=== PATIENT | male | born 1945 | race Caucasian/White ===

== ENCOUNTER 2024-01-07 19:23 | Inpatient (IN) | payer MEDICARE ==
[~2024-01-07] VITALS: Ht 180.3 cm; Wt 89.8 kg
[2024-01-07 19:25] VITALS: BP 114/68; PULSE 86; RESP 22; TEMP 98; O2SAT 97
[2024-01-07] MEDS ORDERED: cefTRIAXone 1,000 MG VIAL ONE (19:33)
[2024-01-07 19:45] VITALS: BP 139/69; PULSE 84; PULSE 94; RESP 25; O2SAT 94; O2SAT 97; O2SAT 99
[2024-01-07] MEDS: cefTRIAXone 1,000 MG in DEXT 5% MINI-BAG PLUS 50 ML IV ONE (19:45)
[2024-01-07] MEDS: FUROSEMIDE 40 MG/4 ML VIAL IVP ONE (19:45)
[2024-01-07 19:47] LABS: BASOPHILS # (AUTO) 0.1 K/uL (0.00-0.22); EOSINOPHILS % (AUTO) 0.3 % (0.0-4.0); HEMOGLOBIN 13.9 g/dL (12.0-18.0); LYMPHOCYTES # (AUTO) 0.5 K/uL (2.0-11.5); LYMPHOCYTES % (AUTO) 4.1 % (20.5-51.1); MEAN CORPUSCULAR HEMOGLOBIN 26 pg (27-31); MEAN CORPUSCULAR HGB CONC 32 g/dL (33-37); MEAN CORPUSCULAR VOLUME 82.6 fL (80-94); MONOCYTES # (AUTO) 1.6 K/uL (0.8-1.0); MONOCYTES % (AUTO) 11.8 % (1.7-9.3); NEUTROPHILS # (AUTO) 10.9 K/uL (1.8-7.7); NEUTROPHILS % (AUTO) 82.8 % (42.2-75.2); PLATELET COUNT (AUTO) 353 K/uL (140-450); RED BLOOD CELL COUNT(AUTO) 5.33 MIL/uL (4.20-6.10); RED CELL DISTRIBUTION WIDTH 17.4 % (11.6-13.7); WHITE BLOOD COUNT (AUTO) 13.1 K/uL (4.8-10.8)
[2024-01-07 19:48] LABS: ANION GAP 8.8 (8-16); CALCIUM 8.8 mg/dL (8.5-10.1); CARBON DIOXIDE 34.2 mmol/L (21-32); CHLORIDE 89 mmol/L (98-107); CREATININE 0.6 mg/dL (0.6-1.3); GLUCOSE 178 mg/dL (74-106); SODIUM SERUM 128 mmol/L (136-145); UREA NITROGEN, BLOOD 20 mg/dL (7-18)
[2024-01-07 20:00] LABS: ALANINE AMINOTRANSFERASE 6 U/L (12-78); ALBUMIN 2.6 g/dL (3.4-5.0); ALKALINE PHOSPHATASE 126 U/L (50-136); ASPARTATE AMINOTRANSFERASE 26 U/L (15-37); BILIRUBIN,DIRECT 0.3 mg/dL (0.0-0.3); TOTAL BILIRUBIN 0.6 mg/dL (0.0-1.0); TOTAL PROTEIN, SERUM 7.5 g/dL (6.4-8.2)
[2024-01-07 20:06] LABS: LACTIC ACID 1.3 mmol/L (0.4-2.0)
[2024-01-07 20:26] LABS: APPEARANCE,URINE CLEAR (CLEAR); BILIRUBIN,URINE NEGATIVE (NEGATIVE); BLOOD, URINE TRACE-I (NEGATIVE); COLOR,URINE YELLOW (YELLOW); LEUKOCYTE ESTERASE ,URINE NEGATIVE (NEGATIVE); NITRITE, URINE NEGATIVE (NEGATIVE); PROTEIN,URINE 1+ (NEGATIVE); UGLUCOSE 3+ (NEGATIVE); UROBILINOGEN,URINE 0.2 EU/dL (0.2 - 1)
[2024-01-07 20:35] LABS: FLU A ANTIGEN negative (NEGATIVE); FLU B ANTIGEN negative (NEGATIVE)
[2024-01-07] MEDS ORDERED: NOVN SUBQ (21:40)
[2024-01-07] MEDS ORDERED: ACET-2619 PO (21:41)
[2024-01-07] MEDS ORDERED: FOS70 PO (21:41)
[2024-01-07] MEDS ORDERED: EMPA25TA PO (21:41)
[2024-01-07] MEDS ORDERED: FURO-570 PO (21:41)
[2024-01-07] MEDS ORDERED: CARB-540 PO (21:41)
[2024-01-07] MEDS ORDERED: SENN-73 PO (21:41)
[2024-01-07] MEDS ORDERED: LEVO0.173 PO (21:41)
[2024-01-07] MEDS ORDERED: POTA20TA PO (21:41)
[2024-01-07] MEDS ORDERED: ZAR2.5 PO (21:41)
[2024-01-07] MEDS ORDERED: MELA1TAB32 PO (21:41)
[2024-01-07] MEDS ORDERED: TUBE5SOL28 ID (21:41)
[2024-01-07] MEDS ORDERED: INSU100S5 IJ (21:41)
[2024-01-07] MEDS ORDERED: LISI2.5T12 PO (21:41)
[2024-01-07] MEDS ORDERED: ATOR20TA PO (21:41)
[2024-01-07] MEDS ORDERED: ASPI-1205 PO (21:41)
[2024-01-07] MEDS ORDERED: METO25TA PO (21:41)
[2024-01-07] MEDS ORDERED: ONDANSETRON 4 MG/2 ML VIAL IVP PRN ×2 (21:45→23:05)
[2024-01-07] MEDS ORDERED: BENZONATATE 100 MG CAPLF PO PRN (21:45)
[2024-01-07] MEDS ORDERED: AZITHROMYCIN 500 MG in DEXTROSE 5% 250 ML IV SCH (21:45)
[2024-01-07] MEDS ORDERED: HYDROcodone/APAP 5/325 MG 1 TAB TAB PO PRN (21:45)
[2024-01-07] MEDS ORDERED: LORazepam 2 MG/ML VIAL IVP PRN (21:45)
[2024-01-07] MEDS ORDERED: MORPHINE SULFATE 2 MG/ML SYR IVP PRN (21:45)
[2024-01-07] MEDS ORDERED: hydrALAZINE 20 MG/ML VIAL IVP PRN (21:50)
[2024-01-07 23:10] VITALS: BP 143/72; PULSE 101; RESP 32; TEMP 97.1; O2SAT 90
[2024-01-07 23:20] VITALS: PULSE 100; O2SAT 92
[2024-01-07] MEDS: methylPREDNISolone SS 40 MG/ML VIAL IVP ONE (23:49)
[2024-01-08] VITALS (13 sets, daily range): BP systolic 117–128; BP diastolic 66–75; PULSE 68–105; RESP 18–32; TEMP 97.2–99.2; O2SAT 89–98
[2024-01-08] MEDS: ALBUTEROL SULFATE/IPRATROPIU 3 ML SOL IH SCH (04:09)
[2024-01-08] MEDS: methylPREDNISolone SS 40 MG/ML VIAL IVP SCH (05:20)
[2024-01-08] MEDS ORDERED: LEVOTHYROXINE 0.112 MG TAB PO SCH (06:30)
[2024-01-08] MEDS: INSULIN LISPRO SLIDING SCALE 100 UNITS/ML VIAL SUBQ PRN (06:32)
[2024-01-08] MEDS: BLOOD GLUCOSE MONITORING 1 DEV DEV FS SCH (06:32)
[2024-01-08] MEDS: FUROSEMIDE 20 MG/2 ML VIAL IVP SCH (08:59)
[2024-01-08] MEDS: metOLazone 2.5 MG TAB PO SCH (09:00)
[2024-01-08] MEDS: SENNA 8.6 MG TAB PO SCH (09:00)
[2024-01-08] MEDS: METOPROLOL 25 MG TAB PO SCH (09:00)
[2024-01-08] MEDS: CARBIDOPA/LEVODOPA 25/100 MG 1 TAB PO SCH (09:00)
[2024-01-08] MEDS: lisinopriL 5 MG TAB PO SCH (09:00)
[2024-01-08] MEDS: ATORVASTATIN 20 MG TAB PO SCH (09:00)
[2024-01-08] MEDS: ENOXAPARIN 40 MG/0.4 ML SYR SUBQ SCH (09:01)
[2024-01-08] MEDS: DEXT 5% /NACL 0.9% 1,000 ML IV SCH (10:11)
[2024-01-08] MEDS: FUROSEMIDE 40 MG/4 ML VIAL IVP SCH (18:14)
[2024-01-09] VITALS (18 sets, daily range): BP systolic 114–133; BP diastolic 58–84; PULSE 65–95; RESP 16–31; TEMP 96.9–97.9; O2SAT 91–99
[2024-01-09 06:30] LABS: BASOPHILS % (AUTO) 0.1 % (0.0-2.0); HEMATOCRIT 40.8 % (36-52); HEMOGLOBIN 13.1 g/dL (12.0-18.0); LYMPHOCYTES # (AUTO) 0.5 K/uL (2.0-11.5); LYMPHOCYTES % (AUTO) 3.3 % (20.5-51.1); MEAN CORPUSCULAR HEMOGLOBIN 26 pg (27-31); MEAN CORPUSCULAR HGB CONC 32 g/dL (33-37); MEAN CORPUSCULAR VOLUME 82.2 fL (80-94); NEUTROPHILS # (AUTO) 12.9 K/uL (1.8-7.7); NEUTROPHILS % (AUTO) 89.6 % (42.2-75.2); PLATELET COUNT (AUTO) 334 K/uL (140-450); RED BLOOD CELL COUNT(AUTO) 4.96 MIL/uL (4.20-6.10); RED CELL DISTRIBUTION WIDTH 17.7 % (11.6-13.7); WHITE BLOOD COUNT (AUTO) 14.4 K/uL (4.8-10.8)
[2024-01-09] MEDS: LEVOTHYROXINE 0.075 MG, LEVOTHYROXINE 0.1 MG PO SCH (06:37)
[2024-01-09] MEDS: LEVOTHYROXINE 0.1 MG TAB ONE (06:39)
[2024-01-09] MEDS: LEVOTHYROXINE 0.075 MG TAB ONE (06:39)
[2024-01-09 06:40] LABS: ANION GAP 11.2 (8-16); CALCIUM 8.3 mg/dL (8.5-10.1); CARBON DIOXIDE 32.1 mmol/L (21-32); CHLORIDE 93 mmol/L (98-107); CREATININE 0.9 mg/dL (0.6-1.3); GLUCOSE 215 mg/dL (74-106); POTASSIUM 3.3 mmol/L (3.5-5.1); SODIUM SERUM 133 mmol/L (136-145); UREA NITROGEN, BLOOD 31 mg/dL (7-18)
[2024-01-09 06:55] LABS: FREE T4 (FREE THYROXINE) 1.09 ng/dL (0.76-1.46); THYROID STIMULATING HORMONE 3.34 uIU/mL (0.34-3.74)
[2024-01-09] MEDS: POTASSIUM CHLORIDE 10 MEQ TABER PO SCH (15:01)
[2024-01-10] VITALS (14 sets, daily range): BP systolic 112–141; BP diastolic 52–71; PULSE 52–74; RESP 16–23; TEMP 96.5–98.1; O2SAT 90–98
[2024-01-10] MEDS: LEVOTHYROXINE 0.075 MG TAB ONE (06:20)
[2024-01-10] MEDS: LEVOTHYROXINE 0.1 MG TAB ONE (06:21)
[2024-01-10 07:05] LABS: BASOPHILS # (AUTO) 0.1 K/uL (0.00-0.22); BASOPHILS % (AUTO) 0.5 % (0.0-2.0); EOSINOPHILS # (AUTO) 0.1 K/uL (0-0.4); EOSINOPHILS % (AUTO) 0.5 % (0.0-4.0); HEMATOCRIT 44.1 % (36-52); HEMOGLOBIN 14.1 g/dL (12.0-18.0); LYMPHOCYTES # (AUTO) 0.6 K/uL (2.0-11.5); LYMPHOCYTES % (AUTO) 4.3 % (20.5-51.1); MEAN CORPUSCULAR HEMOGLOBIN 27 pg (27-31); MEAN CORPUSCULAR HGB CONC 32 g/dL (33-37); MONOCYTES # (AUTO) 1.3 K/uL (0.8-1.0); MONOCYTES % (AUTO) 9.2 % (1.7-9.3); NEUTROPHILS # (AUTO) 12.3 K/uL (1.8-7.7); NEUTROPHILS % (AUTO) 85.5 % (42.2-75.2); PLATELET COUNT (AUTO) 316 K/uL (140-450); RED BLOOD CELL COUNT(AUTO) 5.31 MIL/uL (4.20-6.10); RED CELL DISTRIBUTION WIDTH 17.9 % (11.6-13.7); WHITE BLOOD COUNT (AUTO) 14.3 K/uL (4.8-10.8)
[2024-01-10 07:46] LABS: ANION GAP 10.8 (8-16); CALCIUM 8.4 mg/dL (8.5-10.1); CARBON DIOXIDE 35.6 mmol/L (21-32); CHLORIDE 93 mmol/L (98-107); GLUCOSE 241 mg/dL (74-106); SODIUM SERUM 137 mmol/L (136-145); UREA NITROGEN, BLOOD 36 mg/dL (7-18)
[2024-01-10 07:50] LABS: POTASSIUM 2.4 mmol/L (3.5-5.1)
[2024-01-10] MEDS: POTASSIUM CHLORIDE 40 MEQ, LIDOCAINE 1% 25 MG in NACL 0.9% 250 ML IV SCH (12:04)
[2024-01-10] MEDS: POTASSIUM CHLORIDE 10 MEQ TABER PO SCH (17:07)
[2024-01-10] MEDS: SILDENAFIL 20 MG TAB PO SCH (17:08)
[2024-01-10] MEDS: APIXABAN 2.5 MG TAB PO SCH (20:16)
[2024-01-11] VITALS (15 sets, daily range): BP systolic 117–143; BP diastolic 47–69; PULSE 62–83; RESP 18–20; TEMP 96.7–98.4; O2SAT 91–98
[2024-01-11] MEDS: LEVOTHYROXINE 0.075 MG TAB ONE (06:21)
[2024-01-11] MEDS: LEVOTHYROXINE 0.1 MG TAB ONE (06:21)
[2024-01-11 06:46] LABS: CALCIUM 7.7 mg/dL (8.5-10.1); CARBON DIOXIDE 36.5 mmol/L (21-32); CHLORIDE 95 mmol/L (98-107); GLUCOSE 337 mg/dL (74-106); HEMATOCRIT 39.1 % (36-52); HEMOGLOBIN 12.7 g/dL (12.0-18.0); LYMPHOCYTES # (AUTO) 0.3 K/uL (2.0-11.5); LYMPHOCYTES % (AUTO) 2.7 % (20.5-51.1); MEAN CORPUSCULAR HEMOGLOBIN 27 pg (27-31); MEAN CORPUSCULAR HGB CONC 33 g/dL (33-37); MEAN CORPUSCULAR VOLUME 82.6 fL (80-94); MONOCYTES # (AUTO) 0.9 K/uL (0.8-1.0); MONOCYTES % (AUTO) 8.5 % (1.7-9.3); NEUTROPHILS # (AUTO) 9.6 K/uL (1.8-7.7); NEUTROPHILS % (AUTO) 88.8 % (42.2-75.2); PLATELET COUNT (AUTO) 291 K/uL (140-450); RED BLOOD CELL COUNT(AUTO) 4.73 MIL/uL (4.20-6.10); RED CELL DISTRIBUTION WIDTH 17.7 % (11.6-13.7); SODIUM SERUM 136 mmol/L (136-145); UREA NITROGEN, BLOOD 40 mg/dL (7-18); WHITE BLOOD COUNT (AUTO) 10.8 K/uL (4.8-10.8)
[2024-01-11 06:49] LABS: POTASSIUM 2.5 mmol/L (3.5-5.1)
[2024-01-11] MEDS ORDERED: POTASSIUM CHLORIDE 40 MEQ, LIDOCAINE 1% 25 MG in NACL 0.9% 250 ML IV ONE (07:35)
[2024-01-11] MEDS: POTASSIUM CHLORIDE 40 MEQ, LIDOCAINE 1% 25 MG in NACL 0.9% 250 ML IV SCH (09:23)
[2024-01-11] MEDS: POTASSIUM CHLORIDE 10 MEQ TABER PO SCH ×2 (13:28→16:50)
[2024-01-11] MEDS: FUROSEMIDE 40 MG/4 ML VIAL IVP SCH (13:38)
[2024-01-11] MEDS: INSULIN LANTUS 100 UNITS/ML 10 ML VIAL SUBQ SCH (20:32)
[2024-01-12] VITALS (14 sets, daily range): BP systolic 92–127; BP diastolic 56–80; PULSE 70–92; RESP 16–22; TEMP 96.7–98.3; O2SAT 88–97
[2024-01-12] MEDS: LEVOTHYROXINE 0.075 MG TAB ONE (06:26)
[2024-01-12] MEDS: LEVOTHYROXINE 0.1 MG TAB ONE (06:26)
[2024-01-12 07:09] LABS: HEMATOCRIT 42.5 % (36-52); HEMOGLOBIN 13.8 g/dL (12.0-18.0); LYMPHOCYTES # (AUTO) 0.4 K/uL (2.0-11.5); LYMPHOCYTES % (AUTO) 2.8 % (20.5-51.1); MEAN CORPUSCULAR HEMOGLOBIN 27 pg (27-31); MEAN CORPUSCULAR HGB CONC 33 g/dL (33-37); MONOCYTES # (AUTO) 0.9 K/uL (0.8-1.0); MONOCYTES % (AUTO) 6.6 % (1.7-9.3); NEUTROPHILS # (AUTO) 12.1 K/uL (1.8-7.7); NEUTROPHILS % (AUTO) 90.6 % (42.2-75.2); PLATELET COUNT (AUTO) 267 K/uL (140-450); RED BLOOD CELL COUNT(AUTO) 5.12 MIL/uL (4.20-6.10); RED CELL DISTRIBUTION WIDTH 17.6 % (11.6-13.7); WHITE BLOOD COUNT (AUTO) 13.4 K/uL (4.8-10.8)
[2024-01-12 07:39] LABS: ANION GAP 5.8 (8-16); CALCIUM 7.8 mg/dL (8.5-10.1); CHLORIDE 94 mmol/L (98-107); GLUCOSE 298 mg/dL (74-106); SODIUM SERUM 139 mmol/L (136-145); UREA NITROGEN, BLOOD 40 mg/dL (7-18)
[2024-01-12 07:40] LABS: POTASSIUM 2.6 mmol/L (3.5-5.1)
[2024-01-12 07:41] LABS: CARBON DIOXIDE 41.8 mmol/L (21-32)
[2024-01-12] MEDS: POTASSIUM CHLORIDE 40 MEQ, LIDOCAINE 1% 25 MG in NACL 0.9% 250 ML IV SCH (11:09)
[2024-01-12] MEDS: acetaZOLAMIDE sodium 500 MG VIAL IVP SCH (14:00)
[2024-01-12] MEDS: POTASSIUM CHLORIDE 10 MEQ TABER PO SCH ×2 (14:26→21:47)
[2024-01-12] MEDS: AZITHROMYCIN 500 MG in DEXTROSE 5% 250 ML IV SCH (15:37)
[2024-01-12] MEDS ORDERED: POTASSIUM CHLORIDE 10 MEQ TABER PO SCH (18:00)
[2024-01-12] MEDS: INSULIN LANTUS 100 UNITS/ML 10 ML VIAL SUBQ SCH (21:40)
[2024-01-13] VITALS (17 sets, daily range): BP systolic 101–137; BP diastolic 47–64; PULSE 74–104; RESP 18–22; TEMP 96.8–98.2; O2SAT 89–95
[2024-01-13 07:00] LABS: CALCIUM 7.9 mg/dL (8.5-10.1); CARBON DIOXIDE 40.8 mmol/L (21-32); CHLORIDE 96 mmol/L (98-107); CREATININE 0.9 mg/dL (0.6-1.3); GLUCOSE 289 mg/dL (74-106); SODIUM SERUM 138 mmol/L (136-145); UREA NITROGEN, BLOOD 40 mg/dL (7-18)
[2024-01-13 07:07] LABS: POTASSIUM 2.8 mmol/L (3.5-5.1)
[2024-01-13 07:34] LABS: HEMATOCRIT 44.1 % (36-52); LYMPHOCYTES # (AUTO) 0.3 K/uL (2.0-11.5); LYMPHOCYTES % (AUTO) 1.8 % (20.5-51.1); MEAN CORPUSCULAR HEMOGLOBIN 26 pg (27-31); MEAN CORPUSCULAR HGB CONC 32 g/dL (33-37); MONOCYTES % (AUTO) 6.5 % (1.7-9.3); NEUTROPHILS # (AUTO) 14.5 K/uL (1.8-7.7); NEUTROPHILS % (AUTO) 91.7 % (42.2-75.2); PLATELET COUNT (AUTO) 247 K/uL (140-450); RED BLOOD CELL COUNT(AUTO) 5.31 MIL/uL (4.20-6.10); RED CELL DISTRIBUTION WIDTH 17.4 % (11.6-13.7); WHITE BLOOD COUNT (AUTO) 15.8 K/uL (4.8-10.8)
[2024-01-13] MEDS: acetaZOLAMIDE sodium 500 MG VIAL IVP SCH (10:55)
[2024-01-13] MEDS ORDERED: POTASSIUM CHLORIDE 40 MEQ, LIDOCAINE 1% 25 MG in NACL 0.9% 250 ML IV ONE (12:00)
[2024-01-13] MEDS: POTASSIUM CHLORIDE 40 MEQ, LIDOCAINE 1% 25 MG in NACL 0.9% 250 ML IV SCH ×2 (14:38→18:52)
[2024-01-13] MEDS ORDERED: POTASSIUM CHLORIDE 10 MEQ TABER PO ONE (15:20)
[2024-01-13] MEDS: POTASSIUM CHLORIDE 10 MEQ TABER PO SCH (16:45)
[2024-01-13] MEDS: INSULIN LANTUS 100 UNITS/ML 10 ML VIAL SUBQ SCH (21:34)
[2024-01-14] VITALS (12 sets, daily range): BP systolic 98–125; BP diastolic 56–89; PULSE 71–119; RESP 18–29; TEMP 96.5–97.1; O2SAT 92–99
[2024-01-14] MEDS: LEVOTHYROXINE 0.075 MG TAB ONE (06:56)
[2024-01-14] MEDS: LEVOTHYROXINE 0.1 MG TAB ONE (06:57)
[2024-01-14 07:02] LABS: HEMATOCRIT 44.2 % (36-52); HEMOGLOBIN 14.2 g/dL (12.0-18.0); MEAN CORPUSCULAR HEMOGLOBIN 27 pg (27-31); MEAN CORPUSCULAR HGB CONC 32 g/dL (33-37); MEAN CORPUSCULAR VOLUME 82.6 fL (80-94); PLATELET COUNT (AUTO) 240 K/uL (140-450); RED BLOOD CELL COUNT(AUTO) 5.35 MIL/uL (4.20-6.10); RED CELL DISTRIBUTION WIDTH 17.6 % (11.6-13.7)
[2024-01-14 07:26] LABS: ANION GAP 4.5 (8-16); CALCIUM 8.2 mg/dL (8.5-10.1); CHLORIDE 95 mmol/L (98-107); CREATININE 0.9 mg/dL (0.6-1.3); GLUCOSE 219 mg/dL (74-106); SODIUM SERUM 138 mmol/L (136-145); UREA NITROGEN, BLOOD 41 mg/dL (7-18)
[2024-01-14 07:30] LABS: CARBON DIOXIDE 41.2 mmol/L (21-32); POTASSIUM 2.7 mmol/L (3.5-5.1); WHITE BLOOD COUNT (AUTO) 24.8 K/uL (4.8-10.8)
[2024-01-14 08:14] LABS: LYMPHOCYTES % (MANUAL) 5 % (20-46); MONOCYTES % (MANUAL) 7 % (5-12)
[2024-01-14 08:15] LABS: PLATELET ESTIMATE ADEQUATE
[2024-01-14] MEDS: POTASSIUM CHLORIDE 40 MEQ, LIDOCAINE 1% 25 MG in NACL 0.9% 250 ML IV SCH (09:41)
[2024-01-14 16:01] LABS: BLOOD GAS HCO3 43.1 mmol/L (22-26); BLOOD GAS PCO2 49.4 mmHg (35-45); BLOOD GAS PH 7.559 (7.35-7.45); BLOOD GAS PO2 52.9 mmHg (75-100)
[2024-01-14 16:02] LABS: BLOOD GAS O2 SAT% 89.4 % (92.0-98.5)
[2024-01-14] MEDS: KCL 20 MEQ IN 100 mL PREMIX 200 ML IV SCH (16:42)
[2024-01-14] MEDS: MAG SULF 2000 MG/WATER PREMIX 50 ML IV SCH (21:50)
[2024-01-15] VITALS (13 sets, daily range): BP systolic 98–132; BP diastolic 47–65; PULSE 86–113; RESP 18–24; TEMP 96.1–98.4; O2SAT 92–97
[2024-01-15] MEDS: LEVOTHYROXINE 0.1 MG TAB ONE (06:02)
[2024-01-15] MEDS: LEVOTHYROXINE 0.075 MG TAB ONE (06:02)
[2024-01-15 07:03] LABS: BASOPHILS % (AUTO) 0.1 % (0.0-2.0); HEMOGLOBIN 15.2 g/dL (12.0-18.0); LYMPHOCYTES # (AUTO) 0.5 K/uL (2.0-11.5); LYMPHOCYTES % (AUTO) 2.2 % (20.5-51.1); MEAN CORPUSCULAR HEMOGLOBIN 27 pg (27-31); MEAN CORPUSCULAR HGB CONC 32 g/dL (33-37); MONOCYTES # (AUTO) 1.5 K/uL (0.8-1.0); MONOCYTES % (AUTO) 6.3 % (1.7-9.3); NEUTROPHILS # (AUTO) 22.2 K/uL (1.8-7.7); NEUTROPHILS % (AUTO) 91.4 % (42.2-75.2); PLATELET COUNT (AUTO) 221 K/uL (140-450); RED BLOOD CELL COUNT(AUTO) 5.66 MIL/uL (4.20-6.10); RED CELL DISTRIBUTION WIDTH 17.6 % (11.6-13.7); WHITE BLOOD COUNT (AUTO) 24.3 K/uL (4.8-10.8)
[2024-01-15 07:34] LABS: ANION GAP 6.5 (8-16); CHLORIDE 93 mmol/L (98-107); CREATININE 0.9 mg/dL (0.6-1.3); GLUCOSE 218 mg/dL (74-106); POTASSIUM 3.6 mmol/L (3.5-5.1); SODIUM SERUM 137 mmol/L (136-145); UREA NITROGEN, BLOOD 44 mg/dL (7-18)
[2024-01-15 07:37] LABS: CARBON DIOXIDE 41.1 mmol/L (21-32)
[2024-01-16] VITALS (11 sets, daily range): BP systolic 105–147; BP diastolic 53–80; PULSE 81–111; RESP 16–22; TEMP 96.5–97.9; O2SAT 91–98
[2024-01-16] MEDS: LEVOTHYROXINE 0.075 MG TAB ONE (04:55)
[2024-01-16] MEDS: LEVOTHYROXINE 0.1 MG TAB ONE (04:55)
[2024-01-16 07:05] LABS: BASOPHILS % (AUTO) 0.1 % (0.0-2.0); HEMATOCRIT 45.1 % (36-52); HEMOGLOBIN 14.4 g/dL (12.0-18.0); LYMPHOCYTES # (AUTO) 0.3 K/uL (2.0-11.5); MEAN CORPUSCULAR HEMOGLOBIN 27 pg (27-31); MEAN CORPUSCULAR HGB CONC 32 g/dL (33-37); MONOCYTES # (AUTO) 1.1 K/uL (0.8-1.0); MONOCYTES % (AUTO) 6.4 % (1.7-9.3); NEUTROPHILS % (AUTO) 91.5 % (42.2-75.2); PLATELET COUNT (AUTO) 242 K/uL (140-450); RED BLOOD CELL COUNT(AUTO) 5.43 MIL/uL (4.20-6.10); RED CELL DISTRIBUTION WIDTH 17.9 % (11.6-13.7); WHITE BLOOD COUNT (AUTO) 17.5 K/uL (4.8-10.8)
[2024-01-16 07:09] LABS: ANION GAP 6.9 (8-16); CALCIUM 8.4 mg/dL (8.5-10.1); CARBON DIOXIDE 38.7 mmol/L (21-32); CHLORIDE 94 mmol/L (98-107); CREATININE 0.9 mg/dL (0.6-1.3); GLUCOSE 229 mg/dL (74-106); POTASSIUM 3.6 mmol/L (3.5-5.1); SODIUM SERUM 136 mmol/L (136-145); UREA NITROGEN, BLOOD 43 mg/dL (7-18)
[2024-01-17] VITALS (13 sets, daily range): BP systolic 109–133; BP diastolic 66–77; PULSE 63–119; RESP 16–22; TEMP 97–98.8; O2SAT 90–98
[2024-01-17] MEDS: LEVOTHYROXINE 0.075 MG TAB ONE (06:29)
[2024-01-17] MEDS: LEVOTHYROXINE 0.1 MG TAB ONE (06:30)
[2024-01-17 07:25] LABS: HEMATOCRIT 42.7 % (36-52); MEAN CORPUSCULAR HEMOGLOBIN 27 pg (27-31); MEAN CORPUSCULAR HGB CONC 33 g/dL (33-37); MEAN CORPUSCULAR VOLUME 82.1 fL (80-94); PLATELET COUNT (AUTO) 239 K/uL (140-450); RED CELL DISTRIBUTION WIDTH 17.7 % (11.6-13.7); WHITE BLOOD COUNT (AUTO) 20.8 K/uL (4.8-10.8)
[2024-01-17 07:35] LABS: ANION GAP 9.4 (8-16); CALCIUM 8.4 mg/dL (8.5-10.1); CARBON DIOXIDE 35.1 mmol/L (21-32); CHLORIDE 97 mmol/L (98-107); CREATININE 0.8 mg/dL (0.6-1.3); GLUCOSE 181 mg/dL (74-106); POTASSIUM 3.5 mmol/L (3.5-5.1); SODIUM SERUM 138 mmol/L (136-145); UREA NITROGEN, BLOOD 44 mg/dL (7-18)
[2024-01-17 08:08] LABS: LYMPHOCYTES % (MANUAL) 3 % (20-46)
[2024-01-17 08:10] LABS: MONOCYTES % (MANUAL) 6 % (5-12)
[2024-01-17] MEDS: AZITHROMYCIN 500 MG in DEXTROSE 5% 250 ML IV SCH (12:53)
[2024-01-17] MEDS ORDERED: METF-1139 PO (14:37)
[2024-01-18] VITALS (16 sets, daily range): BP systolic 116–153; BP diastolic 56–74; PULSE 82–109; RESP 19–25; TEMP 95.2–97.4; O2SAT 87–98
[2024-01-18] MEDS: LEVOTHYROXINE 0.075 MG TAB ONE (06:16)
[2024-01-18] MEDS: LEVOTHYROXINE 0.1 MG TAB ONE (06:16)
[2024-01-18 07:09] LABS: BASOPHILS % (AUTO) 0.1 % (0.0-2.0); HEMATOCRIT 45.4 % (36-52); HEMOGLOBIN 14.6 g/dL (12.0-18.0); LYMPHOCYTES # (AUTO) 0.4 K/uL (2.0-11.5); MEAN CORPUSCULAR HEMOGLOBIN 27 pg (27-31); MEAN CORPUSCULAR HGB CONC 32 g/dL (33-37); MEAN CORPUSCULAR VOLUME 82.8 fL (80-94); MONOCYTES # (AUTO) 1.4 K/uL (0.8-1.0); NEUTROPHILS # (AUTO) 20.9 K/uL (1.8-7.7); NEUTROPHILS % (AUTO) 91.9 % (42.2-75.2); PLATELET COUNT (AUTO) 272 K/uL (140-450); RED BLOOD CELL COUNT(AUTO) 5.48 MIL/uL (4.20-6.10); WHITE BLOOD COUNT (AUTO) 22.7 K/uL (4.8-10.8)
[2024-01-18 07:36] LABS: ANION GAP 9.3 (8-16); CALCIUM 8.6 mg/dL (8.5-10.1); CARBON DIOXIDE 32.6 mmol/L (21-32); CHLORIDE 97 mmol/L (98-107); CREATININE 0.9 mg/dL (0.6-1.3); GLUCOSE 234 mg/dL (74-106); POTASSIUM 3.9 mmol/L (3.5-5.1); SODIUM SERUM 135 mmol/L (136-145); UREA NITROGEN, BLOOD 42 mg/dL (7-18)
[2024-01-19] VITALS (12 sets, daily range): BP systolic 105–146; BP diastolic 47–80; PULSE 89–107; RESP 14–20; TEMP 96.7–97.4; O2SAT 93–98
[2024-01-19] MEDS: LEVOTHYROXINE 0.075 MG TAB ONE (06:35)
[2024-01-19] MEDS: LEVOTHYROXINE 0.1 MG TAB ONE (06:36)
[2024-01-19 07:09] LABS: ANION GAP 7.9 (8-16); CALCIUM 8.2 mg/dL (8.5-10.1); CARBON DIOXIDE 32.9 mmol/L (21-32); CHLORIDE 100 mmol/L (98-107); CREATININE 0.8 mg/dL (0.6-1.3); GLUCOSE 121 mg/dL (74-106); POTASSIUM 3.8 mmol/L (3.5-5.1); SODIUM SERUM 137 mmol/L (136-145); UREA NITROGEN, BLOOD 41 mg/dL (7-18)
[2024-01-19 07:47] LABS: BASOPHILS # (AUTO) 0.1 K/uL (0.00-0.22); BASOPHILS % (AUTO) 0.4 % (0.0-2.0); HEMATOCRIT 42.5 % (36-52); HEMOGLOBIN 13.9 g/dL (12.0-18.0); LYMPHOCYTES # (AUTO) 0.4 K/uL (2.0-11.5); LYMPHOCYTES % (AUTO) 1.8 % (20.5-51.1); MEAN CORPUSCULAR HEMOGLOBIN 27 pg (27-31); MEAN CORPUSCULAR HGB CONC 33 g/dL (33-37); MEAN CORPUSCULAR VOLUME 82.6 fL (80-94); MONOCYTES # (AUTO) 1.1 K/uL (0.8-1.0); MONOCYTES % (AUTO) 5.1 % (1.7-9.3); NEUTROPHILS # (AUTO) 20.2 K/uL (1.8-7.7); NEUTROPHILS % (AUTO) 92.7 % (42.2-75.2); PLATELET COUNT (AUTO) 305 K/uL (140-450); RED BLOOD CELL COUNT(AUTO) 5.15 MIL/uL (4.20-6.10); RED CELL DISTRIBUTION WIDTH 17.7 % (11.6-13.7); WHITE BLOOD COUNT (AUTO) 21.8 K/uL (4.8-10.8)
[2024-01-19] MEDS: GAUZE TP SCH (13:00)
[2024-01-20] VITALS (16 sets, daily range): BP systolic 90–125; BP diastolic 54–76; PULSE 82–118; RESP 16–21; TEMP 96.6–97.2; O2SAT 91–98
[2024-01-20] MEDS: LEVOTHYROXINE 0.075 MG TAB ONE ×2 (06:02→07:08)
[2024-01-20] MEDS: LEVOTHYROXINE 0.1 MG TAB ONE ×2 (06:02→07:09)
[2024-01-20 06:55] LABS: HEMATOCRIT 45.3 % (36-52); HEMOGLOBIN 14.6 g/dL (12.0-18.0); MEAN CORPUSCULAR HEMOGLOBIN 27 pg (27-31); MEAN CORPUSCULAR HGB CONC 32 g/dL (33-37); MEAN CORPUSCULAR VOLUME 82.7 fL (80-94); PLATELET COUNT (AUTO) 336 K/uL (140-450); RED BLOOD CELL COUNT(AUTO) 5.48 MIL/uL (4.20-6.10)
[2024-01-20 07:13] LABS: ANION GAP 12.2 (8-16); CALCIUM 8.4 mg/dL (8.5-10.1); CARBON DIOXIDE 28.2 mmol/L (21-32); CHLORIDE 98 mmol/L (98-107); CREATININE 0.9 mg/dL (0.6-1.3); GLUCOSE 216 mg/dL (74-106); POTASSIUM 4.4 mmol/L (3.5-5.1); SODIUM SERUM 134 mmol/L (136-145); UREA NITROGEN, BLOOD 43 mg/dL (7-18)
[2024-01-20 07:36] LABS: WHITE BLOOD COUNT (AUTO) 25.2 K/uL (4.8-10.8)
[2024-01-20 07:38] LABS: LYMPHOCYTES % (MANUAL) 2 % (20-46); MONOCYTES % (MANUAL) 9 % (5-12); PLATELET ESTIMATE ADEQUATE
[2024-01-21] VITALS (14 sets, daily range): BP systolic 87–118; BP diastolic 40–64; PULSE 93–115; RESP 16–22; TEMP 96.7–97.2; O2SAT 95–99
[2024-01-21] MEDS: LEVOTHYROXINE 0.075 MG TAB ONE (05:42)
[2024-01-21] MEDS: LEVOTHYROXINE 0.1 MG TAB ONE (05:43)
[2024-01-21 07:13] LABS: BASOPHILS % (AUTO) 0.1 % (0.0-2.0); HEMATOCRIT 42.4 % (36-52); HEMOGLOBIN 13.6 g/dL (12.0-18.0); LYMPHOCYTES # (AUTO) 0.3 K/uL (2.0-11.5); LYMPHOCYTES % (AUTO) 1.2 % (20.5-51.1); MEAN CORPUSCULAR HEMOGLOBIN 27 pg (27-31); MEAN CORPUSCULAR HGB CONC 32 g/dL (33-37); MEAN CORPUSCULAR VOLUME 82.5 fL (80-94); MONOCYTES # (AUTO) 1.8 K/uL (0.8-1.0); NEUTROPHILS # (AUTO) 23.5 K/uL (1.8-7.7); NEUTROPHILS % (AUTO) 91.7 % (42.2-75.2); PLATELET COUNT (AUTO) 338 K/uL (140-450); RED BLOOD CELL COUNT(AUTO) 5.14 MIL/uL (4.20-6.10); RED CELL DISTRIBUTION WIDTH 18.2 % (11.6-13.7)
[2024-01-21 07:17] LABS: CALCIUM 8.2 mg/dL (8.5-10.1); CARBON DIOXIDE 30.1 mmol/L (21-32); CHLORIDE 100 mmol/L (98-107); CREATININE 0.8 mg/dL (0.6-1.3); GLUCOSE 159 mg/dL (74-106); POTASSIUM 5.1 mmol/L (3.5-5.1); SODIUM SERUM 134 mmol/L (136-145); UREA NITROGEN, BLOOD 44 mg/dL (7-18)
[2024-01-21 07:18] LABS: WHITE BLOOD COUNT (AUTO) 25.6 K/uL (4.8-10.8)
[2024-01-21] MEDS: ACETAMINOPHEN 325 MG TAB PO PRN (12:36)
[2024-01-22] VITALS (12 sets, daily range): BP systolic 93–110; BP diastolic 34–63; PULSE 98–118; RESP 14–20; TEMP 96.4–97.7; O2SAT 92–99
[2024-01-22] MEDS: LEVOTHYROXINE 0.1 MG TAB ONE (05:45)
[2024-01-22] MEDS: LEVOTHYROXINE 0.075 MG TAB ONE (05:45)
[2024-01-22 07:13] LABS: BASOPHILS % (AUTO) 0.1 % (0.0-2.0); HEMATOCRIT 42.3 % (36-52); HEMOGLOBIN 13.6 g/dL (12.0-18.0); LYMPHOCYTES # (AUTO) 0.2 K/uL (2.0-11.5); MEAN CORPUSCULAR HEMOGLOBIN 27 pg (27-31); MEAN CORPUSCULAR HGB CONC 32 g/dL (33-37); MEAN CORPUSCULAR VOLUME 82.5 fL (80-94); MONOCYTES # (AUTO) 1.5 K/uL (0.8-1.0); MONOCYTES % (AUTO) 6.2 % (1.7-9.3); NEUTROPHILS # (AUTO) 22.5 K/uL (1.8-7.7); NEUTROPHILS % (AUTO) 92.7 % (42.2-75.2); PLATELET COUNT (AUTO) 292 K/uL (140-450); RED BLOOD CELL COUNT(AUTO) 5.12 MIL/uL (4.20-6.10); WHITE BLOOD COUNT (AUTO) 24.3 K/uL (4.8-10.8)
[2024-01-22 07:17] LABS: CALCIUM 8.1 mg/dL (8.5-10.1); CARBON DIOXIDE 27.5 mmol/L (21-32); CHLORIDE 100 mmol/L (98-107); CREATININE 1.3 mg/dL (0.6-1.3); GLUCOSE 186 mg/dL (74-106); POTASSIUM 4.5 mmol/L (3.5-5.1); SODIUM SERUM 132 mmol/L (136-145)
[2024-01-22 07:24] LABS: UREA NITROGEN, BLOOD 68 mg/dL (7-18)
[2024-01-23] VITALS (12 sets, daily range): BP systolic 91–119; BP diastolic 45–54; PULSE 78–115; RESP 16–20; TEMP 96.8–97.7; O2SAT 91–99
[2024-01-23] MEDS: LEVOTHYROXINE 0.1 MG TAB ONE (06:16)
[2024-01-23] MEDS: LEVOTHYROXINE 0.075 MG TAB ONE (06:16)
[2024-01-23 07:04] LABS: BASOPHILS % (AUTO) 0.1 % (0.0-2.0); HEMATOCRIT 37.7 % (36-52); HEMOGLOBIN 12.2 g/dL (12.0-18.0); LYMPHOCYTES # (AUTO) 0.1 K/uL (2.0-11.5); LYMPHOCYTES % (AUTO) 0.6 % (20.5-51.1); MEAN CORPUSCULAR HEMOGLOBIN 27 pg (27-31); MEAN CORPUSCULAR HGB CONC 33 g/dL (33-37); MONOCYTES # (AUTO) 1.7 K/uL (0.8-1.0); MONOCYTES % (AUTO) 7.5 % (1.7-9.3); NEUTROPHILS # (AUTO) 21.2 K/uL (1.8-7.7); NEUTROPHILS % (AUTO) 91.8 % (42.2-75.2); PLATELET COUNT (AUTO) 244 K/uL (140-450); RED BLOOD CELL COUNT(AUTO) 4.59 MIL/uL (4.20-6.10); RED CELL DISTRIBUTION WIDTH 18.7 % (11.6-13.7); WHITE BLOOD COUNT (AUTO) 23.1 K/uL (4.8-10.8)
[2024-01-23 07:38] LABS: ANION GAP 9.3 (8-16); CALCIUM 7.9 mg/dL (8.5-10.1); CARBON DIOXIDE 27.7 mmol/L (21-32); CHLORIDE 101 mmol/L (98-107); CREATININE 1.1 mg/dL (0.6-1.3); GLUCOSE 123 mg/dL (74-106); SODIUM SERUM 134 mmol/L (136-145)
[2024-01-23 07:43] LABS: UREA NITROGEN, BLOOD 69 mg/dL (7-18)
[2024-01-24] VITALS (13 sets, daily range): BP systolic 92–146; BP diastolic 45–64; PULSE 69–115; RESP 16–24; TEMP 96.4–97.6; O2SAT 92–98
[2024-01-24] MEDS: LEVOTHYROXINE 0.1 MG TAB ONE (06:14)
[2024-01-24] MEDS: LEVOTHYROXINE 0.075 MG TAB ONE (06:14)
[2024-01-24 07:21] LABS: BASOPHILS % (AUTO) 0.1 % (0.0-2.0); HEMATOCRIT 40.8 % (36-52); HEMOGLOBIN 13.4 g/dL (12.0-18.0); LYMPHOCYTES # (AUTO) 0.2 K/uL (2.0-11.5); LYMPHOCYTES % (AUTO) 0.7 % (20.5-51.1); MEAN CORPUSCULAR HEMOGLOBIN 27 pg (27-31); MEAN CORPUSCULAR HGB CONC 33 g/dL (33-37); MONOCYTES # (AUTO) 1.7 K/uL (0.8-1.0); MONOCYTES % (AUTO) 6.4 % (1.7-9.3); NEUTROPHILS # (AUTO) 25.3 K/uL (1.8-7.7); NEUTROPHILS % (AUTO) 92.8 % (42.2-75.2); PLATELET COUNT (AUTO) 249 K/uL (140-450); RED BLOOD CELL COUNT(AUTO) 5.04 MIL/uL (4.20-6.10); RED CELL DISTRIBUTION WIDTH 18.6 % (11.6-13.7)
[2024-01-24 07:41] LABS: WHITE BLOOD COUNT (AUTO) 27.3 K/uL (4.8-10.8)
[2024-01-24 07:44] LABS: ANION GAP 9.8 (8-16); CALCIUM 8.7 mg/dL (8.5-10.1); CARBON DIOXIDE 32.8 mmol/L (21-32); CHLORIDE 98 mmol/L (98-107); CREATININE 1.2 mg/dL (0.6-1.3); GLUCOSE 193 mg/dL (74-106); POTASSIUM 3.6 mmol/L (3.5-5.1); SODIUM SERUM 137 mmol/L (136-145)
[2024-01-24 07:50] LABS: UREA NITROGEN, BLOOD 70 mg/dL (7-18)
[2024-01-24] MEDS: APIXABAN 2.5 MG TAB PO SCH (20:37)
[2024-01-25] VITALS (15 sets, daily range): BP systolic 103–134; BP diastolic 45–68; PULSE 84–113; RESP 18–26; TEMP 97–97.7; O2SAT 91–99
[2024-01-25] MEDS: LEVOTHYROXINE 0.075 MG TAB ONE (05:37)
[2024-01-25] MEDS: LEVOTHYROXINE 0.1 MG TAB ONE (05:37)
[2024-01-25 07:41] LABS: BASOPHILS # (AUTO) 0.1 K/uL (0.00-0.22); BASOPHILS % (AUTO) 0.2 % (0.0-2.0); HEMATOCRIT 40.9 % (36-52); HEMOGLOBIN 13.2 g/dL (12.0-18.0); LYMPHOCYTES # (AUTO) 0.1 K/uL (2.0-11.5); LYMPHOCYTES % (AUTO) 0.5 % (20.5-51.1); MEAN CORPUSCULAR HEMOGLOBIN 27 pg (27-31); MEAN CORPUSCULAR HGB CONC 32 g/dL (33-37); MEAN CORPUSCULAR VOLUME 82.7 fL (80-94); MONOCYTES % (AUTO) 3.8 % (1.7-9.3); NEUTROPHILS # (AUTO) 25.5 K/uL (1.8-7.7); NEUTROPHILS % (AUTO) 95.5 % (42.2-75.2); PLATELET COUNT (AUTO) 189 K/uL (140-450); RED BLOOD CELL COUNT(AUTO) 4.95 MIL/uL (4.20-6.10); RED CELL DISTRIBUTION WIDTH 18.4 % (11.6-13.7)
[2024-01-25 07:47] LABS: ANION GAP 11.4 (8-16); CALCIUM 8.4 mg/dL (8.5-10.1); CARBON DIOXIDE 28.4 mmol/L (21-32); CHLORIDE 100 mmol/L (98-107); GLUCOSE 152 mg/dL (74-106); POTASSIUM 3.8 mmol/L (3.5-5.1); SODIUM SERUM 136 mmol/L (136-145)
[2024-01-25 07:51] LABS: UREA NITROGEN, BLOOD 66 mg/dL (7-18)
[2024-01-25 07:55] LABS: WHITE BLOOD COUNT (AUTO) 26.7 K/uL (4.8-10.8)
[2024-01-26] VITALS (12 sets, daily range): BP systolic 111–140; BP diastolic 53–62; PULSE 85–116; RESP 18–20; TEMP 96.8–97.6; O2SAT 91–99
[2024-01-26] MEDS: LEVOTHYROXINE 0.1 MG TAB ONE (05:57)
[2024-01-26] MEDS: LEVOTHYROXINE 0.075 MG TAB ONE (05:58)
[2024-01-26 06:48] LABS: BASOPHILS % (AUTO) 0.2 % (0.0-2.0); HEMATOCRIT 38.4 % (36-52); HEMOGLOBIN 12.4 g/dL (12.0-18.0); LYMPHOCYTES # (AUTO) 0.1 K/uL (2.0-11.5); LYMPHOCYTES % (AUTO) 0.4 % (20.5-51.1); MEAN CORPUSCULAR HEMOGLOBIN 26 pg (27-31); MEAN CORPUSCULAR HGB CONC 32 g/dL (33-37); MEAN CORPUSCULAR VOLUME 81.8 fL (80-94); MONOCYTES % (AUTO) 4.2 % (1.7-9.3); NEUTROPHILS # (AUTO) 22.4 K/uL (1.8-7.7); NEUTROPHILS % (AUTO) 95.2 % (42.2-75.2); PLATELET COUNT (AUTO) 197 K/uL (140-450); RED CELL DISTRIBUTION WIDTH 19.3 % (11.6-13.7); WHITE BLOOD COUNT (AUTO) 23.6 K/uL (4.8-10.8)
[2024-01-26 07:02] LABS: INR 1.29 (0.8-1.2); PARTIAL THROMBOPLASTIN TIME 27.2 secs (22-35.6); PROTHROMBIN TIME 13.3 secs (10.8-13.4)
[2024-01-26 07:14] LABS: ANION GAP 11.9 (8-16); CALCIUM 8.5 mg/dL (8.5-10.1); CARBON DIOXIDE 27.6 mmol/L (21-32); CHLORIDE 100 mmol/L (98-107); CREATININE 1.2 mg/dL (0.6-1.3); GLUCOSE 256 mg/dL (74-106); POTASSIUM 3.5 mmol/L (3.5-5.1); SODIUM SERUM 136 mmol/L (136-145)
[2024-01-26 07:46] LABS: UREA NITROGEN, BLOOD 73 mg/dL (7-18)
[2024-01-27] VITALS (13 sets, daily range): BP systolic 98–140; BP diastolic 42–65; PULSE 84–114; RESP 18–22; TEMP 96.9–98.2; O2SAT 93–100
[2024-01-27] MEDS: LEVOTHYROXINE 0.075 MG TAB ONE (05:48)
[2024-01-27] MEDS: LEVOTHYROXINE 0.1 MG TAB ONE (05:49)
[2024-01-27 07:07] LABS: BASOPHILS % (AUTO) 0.2 % (0.0-2.0); HEMATOCRIT 39.6 % (36-52); HEMOGLOBIN 12.9 g/dL (12.0-18.0); LYMPHOCYTES # (AUTO) 0.1 K/uL (2.0-11.5); LYMPHOCYTES % (AUTO) 0.5 % (20.5-51.1); MEAN CORPUSCULAR HEMOGLOBIN 27 pg (27-31); MEAN CORPUSCULAR HGB CONC 33 g/dL (33-37); MEAN CORPUSCULAR VOLUME 82.3 fL (80-94); MONOCYTES # (AUTO) 1.3 K/uL (0.8-1.0); NEUTROPHILS # (AUTO) 24.3 K/uL (1.8-7.7); NEUTROPHILS % (AUTO) 94.3 % (42.2-75.2); PLATELET COUNT (AUTO) 165 K/uL (140-450); RED BLOOD CELL COUNT(AUTO) 4.81 MIL/uL (4.20-6.10); RED CELL DISTRIBUTION WIDTH 18.8 % (11.6-13.7)
[2024-01-27 07:21] LABS: WHITE BLOOD COUNT (AUTO) 25.8 K/uL (4.8-10.8)
[2024-01-27 07:36] LABS: ANION GAP 8.6 (8-16); CALCIUM 8.5 mg/dL (8.5-10.1); CARBON DIOXIDE 31.3 mmol/L (21-32); CHLORIDE 103 mmol/L (98-107); CREATININE 1.2 mg/dL (0.6-1.3); GLUCOSE 105 mg/dL (74-106); SODIUM SERUM 140 mmol/L (136-145)
[2024-01-27 07:58] LABS: POTASSIUM 2.9 mmol/L (3.5-5.1); UREA NITROGEN, BLOOD 79 mg/dL (7-18)
[2024-01-27] MEDS: POTASSIUM CHLORIDE 40 MEQ, LIDOCAINE 1% 25 MG in NACL 0.9% 250 ML IV ONE (10:09)
[2024-01-28] VITALS (14 sets, daily range): BP systolic 70–115; BP diastolic 35–56; PULSE 68–118; RESP 17–22; TEMP 96.5–97.4; O2SAT 93–99
[2024-01-28] MEDS: LEVOTHYROXINE 0.075 MG TAB ONE (06:15)
[2024-01-28] MEDS: LEVOTHYROXINE 0.1 MG TAB ONE (06:15)
[2024-01-28 07:24] LABS: HEMATOCRIT 36.5 % (36-52); HEMOGLOBIN 11.8 g/dL (12.0-18.0); MEAN CORPUSCULAR HEMOGLOBIN 27 pg (27-31); MEAN CORPUSCULAR HGB CONC 32 g/dL (33-37); MEAN CORPUSCULAR VOLUME 82.7 fL (80-94); PLATELET COUNT (AUTO) 127 K/uL (140-450); RED BLOOD CELL COUNT(AUTO) 4.41 MIL/uL (4.20-6.10); RED CELL DISTRIBUTION WIDTH 19.4 % (11.6-13.7)
[2024-01-28 07:44] LABS: ANION GAP 9.8 (8-16); CALCIUM 8.3 mg/dL (8.5-10.1); CARBON DIOXIDE 30.7 mmol/L (21-32); CHLORIDE 106 mmol/L (98-107); CREATININE 1.1 mg/dL (0.6-1.3); GLUCOSE 256 mg/dL (74-106); POTASSIUM 3.5 mmol/L (3.5-5.1); SODIUM SERUM 143 mmol/L (136-145)
[2024-01-28 07:50] LABS: UREA NITROGEN, BLOOD 74 mg/dL (7-18)
[2024-01-28 08:10] LABS: LYMPHOCYTES % (MANUAL) 4 % (20-46)
[2024-01-28 08:11] LABS: PLATELET ESTIMATE DECREASED
[2024-01-28] MEDS: predniSONE 20 MG TAB PO SCH (09:04)
[2024-01-29] VITALS (15 sets, daily range): BP systolic 85–97; BP diastolic 37–46; PULSE 71–115; RESP 17–39; TEMP 96.5–98; O2SAT 90–99
[2024-01-29] MEDS: DEXTROSE 50% 50 ML SYR IVP PRN (05:58)
[2024-01-29 06:46] LABS: BASOPHILS # (AUTO) 0.2 K/uL (0.00-0.22); BASOPHILS % (AUTO) 0.6 % (0.0-2.0); EOSINOPHILS % (AUTO) 0.1 % (0.0-4.0); HEMATOCRIT 34.3 % (36-52); HEMOGLOBIN 11.3 g/dL (12.0-18.0); LYMPHOCYTES # (AUTO) 0.3 K/uL (2.0-11.5); MEAN CORPUSCULAR HEMOGLOBIN 27 pg (27-31); MEAN CORPUSCULAR HGB CONC 33 g/dL (33-37); MEAN CORPUSCULAR VOLUME 82.5 fL (80-94); MONOCYTES # (AUTO) 0.7 K/uL (0.8-1.0); MONOCYTES % (AUTO) 2.7 % (1.7-9.3); NEUTROPHILS # (AUTO) 24.9 K/uL (1.8-7.7); NEUTROPHILS % (AUTO) 95.6 % (42.2-75.2); PLATELET COUNT (AUTO) 115 K/uL (140-450); RED BLOOD CELL COUNT(AUTO) 4.16 MIL/uL (4.20-6.10); RED CELL DISTRIBUTION WIDTH 19.3 % (11.6-13.7)
[2024-01-29 07:03] LABS: ANION GAP 7.1 (8-16); CALCIUM 8.4 mg/dL (8.5-10.1); CARBON DIOXIDE 29.9 mmol/L (21-32); CHLORIDE 110 mmol/L (98-107); GLUCOSE 175 mg/dL (74-106); SODIUM SERUM 144 mmol/L (136-145)
[2024-01-29 07:18] LABS: UREA NITROGEN, BLOOD 68 mg/dL (7-18)
[2024-01-29 07:56] LABS: WHITE BLOOD COUNT (AUTO) 26.1 K/uL (4.8-10.8)
[2024-01-29 09:39] LABS: INR 1.33 (0.8-1.2); PARTIAL THROMBOPLASTIN TIME 28.5 secs (22-35.6); PROTHROMBIN TIME 13.8 secs (10.8-13.4)
[2024-01-29] MEDS ORDERED: LIDOCAINE 2% 100 MG/5 ML UJET TP ONE (10:35)
[2024-01-29] MEDS ORDERED: LIDOCAINE 2% 1000 MG/50 ML VIAL INJ SCH (10:45)
[2024-01-29] MEDS: MIDODRINE 5 MG TAB PO SCH (11:47)
[2024-01-29] MEDS: POTASSIUM CHLORIDE 10 MEQ TABER PO SCH (12:00)
[2024-01-30] VITALS (13 sets, daily range): BP systolic 93–110; BP diastolic 42–59; PULSE 96–119; RESP 17–24; TEMP 96.5–98.7; O2SAT 91–99
[2024-01-30] MEDS: LEVOTHYROXINE 0.1 MG TAB ONE (05:51)
[2024-01-30] MEDS: LEVOTHYROXINE 0.075 MG TAB ONE (05:51)
[2024-01-30 08:13] LABS: BASOPHILS # (AUTO) 0.1 K/uL (0.00-0.22); BASOPHILS % (AUTO) 0.3 % (0.0-2.0); EOSINOPHILS # (AUTO) 0.1 K/uL (0-0.4); EOSINOPHILS % (AUTO) 0.4 % (0.0-4.0); HEMATOCRIT 34.3 % (36-52); HEMOGLOBIN 11.2 g/dL (12.0-18.0); LYMPHOCYTES # (AUTO) 0.2 K/uL (2.0-11.5); MEAN CORPUSCULAR HEMOGLOBIN 27 pg (27-31); MEAN CORPUSCULAR HGB CONC 33 g/dL (33-37); MEAN CORPUSCULAR VOLUME 82.9 fL (80-94); MONOCYTES # (AUTO) 0.7 K/uL (0.8-1.0); NEUTROPHILS # (AUTO) 23.1 K/uL (1.8-7.7); NEUTROPHILS % (AUTO) 95.3 % (42.2-75.2); RED BLOOD CELL COUNT(AUTO) 4.13 MIL/uL (4.20-6.10); RED CELL DISTRIBUTION WIDTH 20.1 % (11.6-13.7)
[2024-01-30 08:15] LABS: WHITE BLOOD COUNT (AUTO) 24.2 K/uL (4.8-10.8)
[2024-01-30 08:16] LABS: PLATELET COUNT (AUTO) 82 K/uL (140-450)
[2024-01-30 08:20] LABS: ANION GAP 11.2 (8-16); CALCIUM 8.3 mg/dL (8.5-10.1); CARBON DIOXIDE 26.7 mmol/L (21-32); CHLORIDE 111 mmol/L (98-107); CREATININE 1.3 mg/dL (0.6-1.3); GLUCOSE 202 mg/dL (74-106); POTASSIUM 3.9 mmol/L (3.5-5.1); SODIUM SERUM 145 mmol/L (136-145)
[2024-01-30 08:43] LABS: UREA NITROGEN, BLOOD 79 mg/dL (7-18)
[2024-01-31] VITALS (12 sets, daily range): BP systolic 91–119; BP diastolic 30–56; PULSE 56–117; RESP 17–30; TEMP 96.5–98.1; O2SAT 90–99
[2024-01-31] MEDS: LEVOTHYROXINE 0.1 MG TAB ONE (06:22)
[2024-01-31] MEDS: LEVOTHYROXINE 0.075 MG TAB ONE (06:22)
[2024-01-31 07:23] LABS: BASOPHILS # (AUTO) 0.1 K/uL (0.00-0.22); BASOPHILS % (AUTO) 0.6 % (0.0-2.0); EOSINOPHILS % (AUTO) 0.2 % (0.0-4.0); HEMOGLOBIN 10.4 g/dL (12.0-18.0); LYMPHOCYTES # (AUTO) 0.2 K/uL (2.0-11.5); LYMPHOCYTES % (AUTO) 1.1 % (20.5-51.1); MEAN CORPUSCULAR HEMOGLOBIN 27 pg (27-31); MEAN CORPUSCULAR HGB CONC 33 g/dL (33-37); MEAN CORPUSCULAR VOLUME 82.7 fL (80-94); MONOCYTES # (AUTO) 0.4 K/uL (0.8-1.0); MONOCYTES % (AUTO) 2.4 % (1.7-9.3); NEUTROPHILS # (AUTO) 16.9 K/uL (1.8-7.7); NEUTROPHILS % (AUTO) 95.7 % (42.2-75.2); PLATELET COUNT (AUTO) 83 K/uL (140-450); RED BLOOD CELL COUNT(AUTO) 3.87 MIL/uL (4.20-6.10); RED CELL DISTRIBUTION WIDTH 19.8 % (11.6-13.7); WHITE BLOOD COUNT (AUTO) 17.7 K/uL (4.8-10.8)
[2024-01-31 07:55] LABS: ANION GAP 11.1 (8-16); CALCIUM 8.5 mg/dL (8.5-10.1); CARBON DIOXIDE 28.4 mmol/L (21-32); CHLORIDE 111 mmol/L (98-107); CREATININE 1.3 mg/dL (0.6-1.3); GLUCOSE 75 mg/dL (74-106); POTASSIUM 3.5 mmol/L (3.5-5.1); SODIUM SERUM 147 mmol/L (136-145)
[2024-01-31 08:03] LABS: UREA NITROGEN, BLOOD 97 mg/dL (7-18)
[2024-02-01] VITALS: BP 88/34; PULSE 108; RESP 18; TEMP 97.2; O2SAT 97
[2024-02-01 01:09] VITALS: PULSE 112; RESP 22; O2SAT 90
== END 2024-02-01 11:11 | DRG 871 ==
LOC: MED 19:23 → MTU 21:46
PROVIDERS: ADMIT Internal Medicine; ATTEND Internal Medicine
PROC: 5A1935Z Respiratory Ventilation, Less than 24 Consecutive Hours (ICD-10-PCS; principal; 2024-01-07)
PROC: 5A09457 Assistance with Respiratory Ventilation, 24-96 Consecutive Hours, Continuous Positive Airway Pressure (ICD-10-PCS; 2024-01-07)
PROC: 5A09357 Assistance with Respiratory Ventilation, Less than 24 Consecutive Hours, Continuous Positive Airway Pressure (ICD-10-PCS; 2024-01-09)
PROC: 5A09357 Assistance with Respiratory Ventilation, Less than 24 Consecutive Hours, Continuous Positive Airway Pressure (ICD-10-PCS; 2024-01-10)
PROC: 5A0935A Assistance with Respiratory Ventilation, Less than 24 Consecutive Hours, High Flow/Velocity Cannula (ICD-10-PCS; 2024-01-10)
PROC: 5A09357 Assistance with Respiratory Ventilation, Less than 24 Consecutive Hours, Continuous Positive Airway Pressure (ICD-10-PCS; 2024-01-11)
PROC: 5A09357 Assistance with Respiratory Ventilation, Less than 24 Consecutive Hours, Continuous Positive Airway Pressure (ICD-10-PCS; 2024-01-12)
PROC: 5A0935A Assistance with Respiratory Ventilation, Less than 24 Consecutive Hours, High Flow/Velocity Cannula (ICD-10-PCS; 2024-01-12)
PROC: 5A09357 Assistance with Respiratory Ventilation, Less than 24 Consecutive Hours, Continuous Positive Airway Pressure (ICD-10-PCS; 2024-01-13)
PROC: 5A09357 Assistance with Respiratory Ventilation, Less than 24 Consecutive Hours, Continuous Positive Airway Pressure (ICD-10-PCS; 2024-01-14)
PROC: 5A0935A Assistance with Respiratory Ventilation, Less than 24 Consecutive Hours, High Flow/Velocity Cannula (ICD-10-PCS; 2024-01-14)
PROC: 5A09357 Assistance with Respiratory Ventilation, Less than 24 Consecutive Hours, Continuous Positive Airway Pressure (ICD-10-PCS; 2024-01-15)
PROC: 5A0935A Assistance with Respiratory Ventilation, Less than 24 Consecutive Hours, High Flow/Velocity Cannula (ICD-10-PCS; 2024-01-16)
PROC: 5A0935A Assistance with Respiratory Ventilation, Less than 24 Consecutive Hours, High Flow/Velocity Cannula (ICD-10-PCS; 2024-01-17)
PROC: 5A09357 Assistance with Respiratory Ventilation, Less than 24 Consecutive Hours, Continuous Positive Airway Pressure (ICD-10-PCS; 2024-01-18)
PROC: 5A09357 Assistance with Respiratory Ventilation, Less than 24 Consecutive Hours, Continuous Positive Airway Pressure (ICD-10-PCS; 2024-01-19)
PROC: 5A09357 Assistance with Respiratory Ventilation, Less than 24 Consecutive Hours, Continuous Positive Airway Pressure (ICD-10-PCS; 2024-01-20)
PROC: 5A09357 Assistance with Respiratory Ventilation, Less than 24 Consecutive Hours, Continuous Positive Airway Pressure (ICD-10-PCS; 2024-01-21)
PROC: 5A0935A Assistance with Respiratory Ventilation, Less than 24 Consecutive Hours, High Flow/Velocity Cannula (ICD-10-PCS; 2024-01-21)
PROC: 5A09357 Assistance with Respiratory Ventilation, Less than 24 Consecutive Hours, Continuous Positive Airway Pressure (ICD-10-PCS; 2024-01-22)
PROC: 5A09357 Assistance with Respiratory Ventilation, Less than 24 Consecutive Hours, Continuous Positive Airway Pressure (ICD-10-PCS; 2024-01-23)
PROC: 5A0935A Assistance with Respiratory Ventilation, Less than 24 Consecutive Hours, High Flow/Velocity Cannula (ICD-10-PCS; 2024-01-23)
PROC: 5A09357 Assistance with Respiratory Ventilation, Less than 24 Consecutive Hours, Continuous Positive Airway Pressure (ICD-10-PCS; 2024-01-24)
PROC: 5A09357 Assistance with Respiratory Ventilation, Less than 24 Consecutive Hours, Continuous Positive Airway Pressure (ICD-10-PCS; 2024-01-26)
PROC: 5A1935Z Respiratory Ventilation, Less than 24 Consecutive Hours (ICD-10-PCS; 2024-01-27)
PROC: 5A09357 Assistance with Respiratory Ventilation, Less than 24 Consecutive Hours, Continuous Positive Airway Pressure (ICD-10-PCS; 2024-01-27)
PROC: 5A09357 Assistance with Respiratory Ventilation, Less than 24 Consecutive Hours, Continuous Positive Airway Pressure (ICD-10-PCS; 2024-01-28)
PROC: 5A09357 Assistance with Respiratory Ventilation, Less than 24 Consecutive Hours, Continuous Positive Airway Pressure (ICD-10-PCS; 2024-01-29)
PROC: 5A09357 Assistance with Respiratory Ventilation, Less than 24 Consecutive Hours, Continuous Positive Airway Pressure (ICD-10-PCS; 2024-01-30)
PROC: 5A0935A Assistance with Respiratory Ventilation, Less than 24 Consecutive Hours, High Flow/Velocity Cannula (ICD-10-PCS; 2024-01-30)
DX: A41.9 Sepsis, unspecified organism (principal); E43 Unspecified severe protein-calorie malnutrition; J69.0 Pneumonitis due to inhalation of food and vomit; I50.43 Acute on chronic combined systolic (congestive) and diastolic (congestive) heart failure; J96.21 Acute and chronic respiratory failure with hypoxia; J18.9 Pneumonia, unspecified organism; J90 Pleural effusion, not elsewhere classified; I11.0 Hypertensive heart disease with heart failure; I48.91 Unspecified atrial fibrillation; E78.5 Hyperlipidemia, unspecified; E03.9 Hypothyroidism, unspecified; G20.A1 Parkinson's disease without dyskinesia, without mention of fluctuations; E11.9 Type 2 diabetes mellitus without complications; Z20.822 Contact with and (suspected) exposure to COVID-19; E87.6 Hypokalemia; E66.01 Morbid (severe) obesity due to excess calories; I27.20 Pulmonary hypertension, unspecified; Z68.27 Body mass index [BMI] 27.0-27.9, adult
CPT/HCPCS: 36415; 36600; 71045; 71275; 76604; 80048; 80076; 81003; 82803; 82948; 83605; 83735; 83880; 84439; 84443; 84484; 85025; 85610; 85730; 87040; 87081; 87086; 93005; 94003; 94640; 94660; 96374; 96375; 97110; 97112; 97530; 99285; J0456; J0696; J1120; J1650; J1815; J1940; J2001; J2920; J3475; J3480; J7030; J7060; J7512; Q0092; Q9967